=== PATIENT | male | born 2000 | race Two or more races ===

== ENCOUNTER 2023-07-23 14:59 | Emergency (ER) | payer OTHER ==
[~2023-07-23] VITALS: Ht 175.3 cm; Wt 208.0 kg
[2023-07-23 15:11] VITALS: BP 189/109; PULSE 106; RESP 16; O2SAT 98
[2023-07-23] MEDS ORDERED: IBUP-1455 PO (17:20)
[2023-07-23] MEDS ORDERED: CYCL-839 PO (17:20)
[2023-07-23] MEDS: HYDROcodone-ACET 5/325MG TAB PO ONE (17:36)
[2023-07-23] MEDS: KETOROLAC TROMETH 60MG/2ML VIAL IM ONE (17:37)
== END 2023-07-23 18:07 | disposition home or self-care (01) ==
LOC: ER 14:59
DX: S93.602A Unspecified sprain of left foot, initial encounter (principal); D16.9 Benign neoplasm of bone and articular cartilage, unspecified; W18.39XA Other fall on same level, initial encounter; Y93.89 Activity, other specified; Y92.89 Other specified places as the place of occurrence of the external cause; Y99.8 Other external cause status
CPT/HCPCS: 29505; 73552; 73590; 96372; 99284; J1885